=== PATIENT | female | born 1980 | race Caucasian/White ===

== ENCOUNTER 2019-10-10 09:09 | Inpatient (IN) | payer OTHER ==
[~2019-10-10] VITALS: Ht 162.6 cm; Wt 44.9 kg
[2019-10-28] MEDS ORDERED: METRONIDAZOLE500 MG PO ×2 (11:04→15:08)
[2019-10-28] MEDS ORDERED: ULTRACET PO (11:04)
[2019-10-28] MEDS ORDERED: INTEGRA F CAPS1 EACH PO ×2 (11:05→15:08)
[2019-10-29] MEDS ORDERED: METRONIDAZOLE500 MG PO (09:36)
[2019-10-29] MEDS ORDERED: INTEGRA F CAPS1 EACH PO (09:36)
== END 2019-10-28 15:48 | disposition home or self-care (01) | DRG 330 ==
LOC: ER 09:09 → SEC-K 13:27 → SURH 13:27
PROVIDERS: Surgery; ADMIT Surgery; ATTEND Surgery
PROC: BT4JZZZ Ultrasonography of Kidneys and Bladder (ICD-10-PCS; 2019-10-11)
PROC: 02HV33Z Insertion of Infusion Device into Superior Vena Cava, Percutaneous Approach (ICD-10-PCS; 2019-10-12)
PROC: 8E0ZXY6 Isolation (ICD-10-PCS; 2019-10-17)
PROC: BW21Y0Z Computerized Tomography (CT Scan) of Abdomen and Pelvis using Other Contrast, Unenhanced and Enhanced (ICD-10-PCS; 2019-10-19)
PROC: 0DJD8ZZ Inspection of Lower Intestinal Tract, Via Natural or Artificial Opening Endoscopic (ICD-10-PCS; 2019-10-20)
PROC: 0T788DZ Dilation of Bilateral Ureters with Intraluminal Device, Via Natural or Artificial Opening Endoscopic (ICD-10-PCS; 2019-10-21)
PROC: 0TQB4ZZ Repair Bladder, Percutaneous Endoscopic Approach (ICD-10-PCS; 2019-10-21)
PROC: 0DTK4ZZ Resection of Ascending Colon, Percutaneous Endoscopic Approach (ICD-10-PCS; principal; 2019-10-21 07:00)
PROC: 0DTB4ZZ Resection of Ileum, Percutaneous Endoscopic Approach (ICD-10-PCS; 2019-10-21 07:00)
DX: K50.811 Crohn's disease of both small and large intestine with rectal bleeding (principal); K56.690 Other partial intestinal obstruction; E44.0 Moderate protein-calorie malnutrition; K62.5 Hemorrhage of anus and rectum; N13.6 Pyonephrosis; N32.2 Vesical fistula, not elsewhere classified; N99.72 Accidental puncture and laceration of a genitourinary system organ or structure during other procedure; A04.72 Enterocolitis due to Clostridium difficile, not specified as recurrent; R31.0 Gross hematuria; N21.0 Calculus in bladder; D64.9 Anemia, unspecified; Z20.828 Contact with and (suspected) exposure to other viral communicable diseases